=== PATIENT | female | born 1975 | race Caucasian/White ===

== ENCOUNTER → 2017-08-23 | Outpatient (REF) | payer OTHER | LOC: M LAB REF 10:17 | DX: J02.9 Acute pharyngitis, unspecified (principal) ==

== ENCOUNTER → 2017-09-02 | Outpatient (CLI) | payer OTHER | LOC: M RAD 16:25 | DX: Z34.82 Encounter for supervision of other normal pregnancy, second trimester (principal) ==

== ENCOUNTER → 2021-10-09 | Outpatient (CLI) | payer OTHER | LOC: M WUC 12:11 | PROVIDERS: ATTEND Internal Medicine Cardiovascular Disease | DX: R05.3 Chronic cough (principal) ==

== ENCOUNTER → 2021-10-26 | Outpatient (CLI) | payer OTHER | LOC: M WHC 14:27 | PROVIDERS: ATTEND Obstetrics & Gynecology | DX: Z12.31 Encounter for screening mammogram for malignant neoplasm of breast (principal) ==

== ENCOUNTER → 2021-11-01 | Outpatient (CLI) | payer OTHER | LOC: M WHC 11:26 | PROVIDERS: ATTEND Obstetrics & Gynecology | DX: Z12.31 Encounter for screening mammogram for malignant neoplasm of breast (principal); N60.02 Solitary cyst of left breast; R93.89 Abnormal findings on diagnostic imaging of other specified body structures | CPT/HCPCS: 77065; G0279 ==

== ENCOUNTER → 2022-07-18 | Outpatient (CLI) | payer OTHER | LOC: M LABSMTC 10:06 | PROVIDERS: ATTEND Anesthesiology | DX: Z01.812 Encounter for preprocedural laboratory examination (principal); Z11.52 Encounter for screening for COVID-19 ==

== ENCOUNTER 2022-07-23 09:28 | Day surgery (SDC) | payer OTHER ==
[~2022-07-23] VITALS: Ht 162.6 cm; Wt 52.2 kg
[~2022-07-23 09:28] MED LIST: NS 1,000 ML IV ONE
[2022-07-23] MEDS ORDERED: fentaNYL 100 MCG/2 ML INJECTION As Ordered ONE (10:00)
[2022-07-23] MEDS ORDERED: propofoL 200 MG/20 ML VIAL As Ordered ONE (10:03)
[2022-07-23] MEDS ORDERED: LIDOCAINE 2% 100MG/5ML SDV (FOR ANES.) As Ordered ONE (10:03)
[2022-07-23 11:36] VITALS: BP 105/72
== END 2022-07-23 11:45 | disposition home or self-care (01) ==
LOC: M OPP 09:28
PROVIDERS: ATTEND Internal Medicine Gastroenterology
DX: K63.5 Polyp of colon (principal); K64.8 Other hemorrhoids; K92.1 Melena; K21.9 Gastro-esophageal reflux disease without esophagitis; Z79.51 Long term (current) use of inhaled steroids; Z79.899 Other long term (current) drug therapy; Z88.2 Allergy status to sulfonamides; Z91.048 Other nonmedicinal substance allergy status; I45.10 Unspecified right bundle-branch block
CPT/HCPCS: 43235; 45385; 88305; J3010

== ENCOUNTER → 2024-05-22 | Outpatient (CLI) | payer OTHER | LOC: M WHC 08:58 | PROVIDERS: ATTEND Obstetrics & Gynecology | DX: N92.6 Irregular menstruation, unspecified (principal); N85.4 Malposition of uterus; D25.1 Intramural leiomyoma of uterus ==

== ENCOUNTER 2024-10-14 06:10 | Observation (INO) | payer OTHER ==
[2024-10-14] VITALS (8 sets, daily range): BP systolic 102–129; BP diastolic 59–73; TEMP 97.6–99.2; O2SAT 95–100
[~2024-10-14] VITALS: Ht 162.6 cm; Wt 52.2 kg
[~2024-10-14 06:10] MED LIST changes: +CHOL100012 PO; +D 1010002 PO; +FAMO10TA52 PO; +FERR325T81 PO; -NS 1,000 ML IV ONE; +OMEGCAP4 PO; +PROBCAP14 PO; +THERTAB52 PO
[2024-10-14] MEDS ORDERED: LR 1,000 ML IV SCH (06:20)
[2024-10-14 06:47] LABS: HEMATOCRIT 43.1 % (36.0-47.0); HEMOGLOBIN 13.7 g/dl (12.0-15.5); MEAN CORPUSCULAR HEMOGLOBIN 28.1 pg (27.0-33.0); MEAN CORPUSCULAR HGB CONC 31.8 g/dl (32.0-36.5); MEAN CORPUSCULAR VOLUME 88.5 fl (80.0-96.0); PLATELET COUNT, AUTOMATED 209 10^3/uL (150-450); RED BLOOD COUNT 4.87 10^6/uL (4.00-5.40); WHITE BLOOD COUNT 5.2 10^3/uL (4.0-10.0)
[2024-10-14 07:15] LABS: BLOOD UREA NITROGEN 13 MG/DL (9-23); CALCIUM LEVEL 9.2 MG/DL (8.5-10.1); CARBON DIOXIDE LEVEL 30 MMOL/L (20-31); CHLORIDE LEVEL 102 MMOL/L (98-107); CREATININE FOR GFR 0.81 MG/DL (0.55-1.30); GLOMERULAR FILTRATION RATE > 60.0 (>51); GLUCOSE, FASTING 87 MG/DL (60-100); SODIUM LEVEL 141 MMOL/L (136-145)
[2024-10-14] MEDS ORDERED: ROCURONIUM BROMIDE 50MG/5ML VIAL As Ordered ONE (07:22)
[2024-10-14] MEDS ORDERED: ONDANSETRON 4MG 2ML VIAL As Ordered ONE (07:22)
[2024-10-14] MEDS ORDERED: LIDOCAINE 2% 100MG/5ML SDV (FOR ANES.) As Ordered ONE (07:22)
[2024-10-14] MEDS ORDERED: propofoL 200 MG/20 ML VIAL As Ordered ONE (07:22)
[2024-10-14] MEDS ORDERED: fentaNYL 250 MCG/5 ML INJECTION As Ordered ONE (07:22)
[2024-10-14] MEDS ORDERED: dexmedeTOMIDine (4MCG/ML)200MCG/50ML BTL (PRECEDEX) As Ordered ONE (07:22)
[2024-10-14] MEDS ORDERED: MIDAZOLAM INJ 2MG/2ML VIAL As Ordered ONE (07:23)
[2024-10-14] MEDS: ceFAZolin SOD 2 GM IV ONCE IV ONE (07:40)
[2024-10-14] MEDS ORDERED: PHENYLephrine 500MCG 5ML (100MCG/ML) SYRINGE As Ordered ONE (08:00)
[2024-10-14] MEDS ORDERED: ePHEDrine SULFATE 25 MG/5 ML(5MG/ML) SYRINGE As Ordered ONE (08:00)
[2024-10-14] MEDS ORDERED: LACRILUBE (AKWA TEARS) OPHTH OINT 3.5GM As Ordered ONE (08:00)
[2024-10-14] MEDS ORDERED: ACETAMINOPHEN 1000MG/100ML IV BAG As Ordered ONE (08:12)
[2024-10-14] MEDS ORDERED: SUGAMMADEX SODIUM 500 MG/5 ML VIAL (BRIDION) As Ordered ONE (08:26)
[2024-10-14] MEDS ORDERED: KETOROLAC 60MG 2ML VIAL As Ordered ONE (08:26)
[2024-10-14] MEDS ORDERED: HYDROmorphone HCL 2MG/ML 1ML VIAL As Ordered ONE (09:04)
[2024-10-14] MEDS ORDERED: SEVOFLURANE INHAL SOLN 250 ML BTL As Ordered ONE (09:42)
[2024-10-14] MEDS: FLUORESCEIN 10% (100MG/ML) 5ML VIAL As Ordered ONE (10:00)
[2024-10-14] MEDS ORDERED: ONDANSETRON 4MG 2ML VIAL IV PRN (10:55)
[2024-10-14] MEDS ORDERED: fentaNYL 100 MCG/2 ML INJECTION IV PRN (10:55)
[2024-10-14] MEDS ORDERED: oxyCODONE 5MG TAB PO PRN (10:55)
[2024-10-14] MEDS ORDERED: MORPHINE 2 MG/ML 1ML VIAL IV PRN (10:55)
[2024-10-14] MEDS: LR 1,000 ML IV SCH (13:39)
[2024-10-14] MEDS ORDERED: [UNRECOGNIZED DRUG - CODE] PO (13:46)
[2024-10-14] MEDS: SIMETHICONE 80MG CHEW TAB PO SCH (13:54)
[2024-10-14] MEDS ORDERED: HOME MED LIST COMPLETE! XX SCH (15:45)
[2024-10-14] MEDS: IBUPROFEN 800 MG TAB PO SCH (18:25)
[2024-10-14] MEDS: PERCOCET 5MG/325MG TAB PO PRN (22:18)
[2024-10-15 00:40] VITALS: BP 110/59; TEMP 99; O2SAT 99
[2024-10-15 04:00] VITALS: BP 108/70; TEMP 97.6; O2SAT 94
[2024-10-15 07:40] VITALS: BP 119/78; TEMP 98.4; O2SAT 99
[2024-10-15] MEDS ORDERED: ACET650T61 PO (08:32)
[2024-10-15] MEDS ORDERED: NITR-67 PO (08:34)
[2024-10-15] MEDS: OMEGA-3 1000MG CAPSULE PO SCH (10:40)
[2024-10-15] MEDS: FERROUS SULFATE 325MG TAB PO SCH (10:40)
== END 2024-10-15 11:43 | disposition home or self-care (01) ==
LOC: M SDC 06:10 → M RR INP 13:19 → M PED 13:27
PROVIDERS: ADMIT Obstetrics & Gynecology; ATTEND Obstetrics & Gynecology
DX: N92.0 Excessive and frequent menstruation with regular cycle (principal); N99.71 Accidental puncture and laceration of a genitourinary system organ or structure during a genitourinary system procedure; D25.9 Leiomyoma of uterus, unspecified; N73.6 Female pelvic peritoneal adhesions (postinfective)
CPT/HCPCS: 36415; 52000; 58571; 80048; 85027; 86850; 86900; 86901; 88307; 96360; 96361; J0131; J0665; J0690; J1100; J1171; J1885; J2250; J2371; J2405; J3010; S2900

== ENCOUNTER 2024-10-16 13:57 | Emergency (ER) | payer OTHER ==
[~2024-10-16] VITALS: Ht 162.6 cm; Wt 52.3 kg
[~2024-10-16 13:57] MED LIST changes: +ACET650T61 PO; +NITR-67 PO; +[UNRECOGNIZED DRUG - CODE] PO
[2024-10-16 14:42] LABS: BASO % 0.3 % (0.0-1.0); EOS % 0.4 % (0.0-3.0); HEMATOCRIT 39.1 % (36.0-47.0); HEMOGLOBIN 12.4 g/dl (12.0-15.5); LYMPH # 1.4 10^3/uL (1.5-5.0); LYMPH % 20.5 % (24.0-44.0); MEAN CORPUSCULAR HEMOGLOBIN 28.2 pg (27.0-33.0); MEAN CORPUSCULAR HGB CONC 31.7 g/dl (32.0-36.5); MEAN CORPUSCULAR VOLUME 89.1 fl (80.0-96.0); MONO # 0.4 10^3/uL (0.0-0.8); MONO % 6.1 % (2.0-8.0); NEUTROPHILS # 4.9 10^3/uL (1.5-8.5); NEUTROPHILS % 72.4 % (36.0-66.0); PLATELET COUNT, AUTOMATED 175 10^3/uL (150-450); RED BLOOD COUNT 4.39 10^6/uL (4.00-5.40); WHITE BLOOD COUNT 6.8 10^3/uL (4.0-10.0)
[2024-10-16 15:25] LABS: BLOOD UREA NITROGEN 6 MG/DL (9-23); CARBON DIOXIDE LEVEL 27 MMOL/L (20-31); CHLORIDE LEVEL 102 MMOL/L (98-107); CREATININE FOR GFR 0.63 MG/DL (0.55-1.30); GLOMERULAR FILTRATION RATE > 60.0 (>51); GLUCOSE, FASTING 108 MG/DL (60-100); POTASSIUM SERUM 4.1 MMOL/L (3.5-5.1); SODIUM LEVEL 139 MMOL/L (136-145)
[2024-10-16] MEDS: ACETAMINOPHEN *IV* 1,000 MG in IV 1 EA IV ONE (15:40)
[2024-10-16 15:45] VITALS: BP 127/78; TEMP 98.4; O2SAT 97
== END 2024-10-16 16:00 | disposition home or self-care (01) ==
LOC: M ED 13:57
DX: N99.820 Postprocedural hemorrhage of a genitourinary system organ or structure following a genitourinary system procedure (principal); K21.9 Gastro-esophageal reflux disease without esophagitis; I45.10 Unspecified right bundle-branch block; Z88.2 Allergy status to sulfonamides; Z91.048 Other nonmedicinal substance allergy status; Z79.899 Other long term (current) drug therapy
CPT/HCPCS: 80048; 85025; 86850; 86900; 86901; 96374; 99284; J0131

== ENCOUNTER → 2024-10-30 | Outpatient (CLI) | payer OTHER ==
[~2024-10-30] MED LIST changes: +DIATRIZOATE MEGLUMINE 30% 300ML (300MG/ML) CYSTOGRAFIN As Ordered ONE
== END ==
LOC: M RADPRO 13:35
PROVIDERS: ATTEND Urology
DX: N99.81 Other intraoperative complications of genitourinary system (principal)
CPT/HCPCS: 51610; 74430; Q9958

== ENCOUNTER → 2024-10-30 | Outpatient (REF) | payer OTHER ==
[~2024-10-30] MED LIST changes: -DIATRIZOATE MEGLUMINE 30% 300ML (300MG/ML) CYSTOGRAFIN As Ordered ONE
== END ==
LOC: M LAB REF 15:19
PROVIDERS: ATTEND Obstetrics & Gynecology
DX: R30.0 Dysuria (principal)

== ENCOUNTER → 2024-12-09 | Outpatient (REF) | payer OTHER ==
[2024-12-09 13:43] LABS: APPEARANCE, URINE CLEAR (CLEAR); BACTERIA, URINE AUTO NEGATIVE (NEGATIVE); BILIRUBIN, URINE AUTO NEGATIVE (NEGATIVE); BLOOD, URINE BLOOD NEGATIVE (NEGATIVE); COLOR, URINE COLORLESS (YELLOW); GLUCOSE, URINE (UA) AUTO NEGATIVE (NEGATIVE); KETONE, URINE AUTO NEGATIVE (NEGATIVE); LEUKOCYTE ESTERASE, URINE AUTO NEGATIVE (NEGATIVE); NITRITE, URINE AUTO NEGATIVE (NEGATIVE); PROTEIN, URINE AUTO NEGATIVE (NEGATIVE); RBC, URINE AUTO 0 /HPF (0-3); SPECIFIC GRAVITY URINE AUTO 1.003 (1.002-1.035); SQUAMOUS EPITHELIAL CELL UR AU 0 /HPF (0-6); UROBILINOGEN, URINE AUTO 0.2 mg/dL (0.0-2.0); WBC, URINE AUTO 0 /HPF (0-3)
== END ==
LOC: M SMT 12:56
PROVIDERS: ATTEND Urology
DX: N99.81 Other intraoperative complications of genitourinary system (principal)